=== PATIENT | female | born 1955 | race Caucasian/White ===

== ENCOUNTER 2018-11-13 09:46 | Day surgery (SDC) | payer OTHER ==
[2018-11-11 10:41] VITALS: BMI 28.3
[~2018-11-13 09:46] MED LIST: Dexamethasone 20 MG/5 ML VIAL ONE; Ketorolac Tromethamine 30 MG/ML VIAL ONE; Lidocaine 1% PF 5 ML VIAL ONE; Ondansetron PF 4 MG/2 ML Vial ONE; PROPOFOL 200 MG/20 ML VIAL ONE; ePHEDrine 50 MG/ML VIAL ONE
[2018-11-13] MEDS ORDERED: ceFAZolin Sodium (SDC) 2 GM/100 ML BAG ONE (10:52)
[2018-11-13] MEDS ORDERED: Bupivacaine PF 0.5% 30 ML VIAL ONE (11:26)
[2018-11-13] MEDS ORDERED: Betamet Acet/Betamet Na Ph 30 MG/5 ML VIAL ONE (11:26)
[2018-11-13] MEDS ORDERED: Fentanyl 100 MCG/2 ML VIAL ONE (11:31)
[2018-11-13] MEDS ORDERED: Promethazine HCl 25 MG/ML VIAL ONE (11:36)
[2018-11-13] MEDS ORDERED: Midazolam HCl 2 mg/2 ml Vial ONE (11:46)
[2018-11-13] MEDS ORDERED: Bacitracin Zinc Ointment 30 gm TUBE ONE (12:26)
--- NOTE | 2018-11-13 18:48 | OP ---
DATE OF PROCEDURE: 11/13/2018 PREOPERATIVE DIAGNOSIS: Left ring finger trigger digit POSTOPERATIVE DIAGNOSES: 1. Left ring finger trigger digit tight A1 adina. 2. Left ring finger ganglion flexor tendon sheath almost 4 mm. 3. Left ring finger flexor digitorum superficialis and profundus tenosynovitis. PROCEDURES PERFORMED: 1. Left ring finger trigger digit release. 2. Left ring finger ganglion excision. 3. Left ring finger flexor digitorum radical flexor tenosynovectomy. 4. Left ring finger flexor digitorum superficialis radical flexor tenosynovectomy. SPECIMEN SENT TO LAB: 4 mm ganglion with some sheath tenosynovium from the tenosynovectomy. TOURNIQUET TIME: 12 minutes. ESTIMATED BLOOD LOSS: Less than or equal to 5 mL. FINDINGS: Again, 4 mm ganglion from the flexor tendon sheath as well as a flexor tenosynovitis. INDICATIONS: The patient has failed conservative treatment with complaint of thickening, popping, swelling, and pain at the ring finger A1 adina region, left side. DESCRIPTION OF PROCEDURE: After successful general LMA technique by [employer] Anesthesia, W[employer] SERVICE MANAGER the time-out done appropriately, we gave first 10 mL of 0.5% Marcaine and a field block prior to procedure and then 10 more mL at the end when the wound was closed. We then exsanguinated the limb, finished time-out, and then inflated the tourniquet. We then made a Haley type incision over the A1 adina slightly more radial than ulna, carried through skin and subcutaneous tissue until we identified some synechiae, which were released as well as the ulnar neurovascular and radial neurovascular bundles, which we spared. We then could easily see the patient had a 4 mm ganglion at junction of the flexor tendon sheath and the adina, so when we made the A1 adina release, we included this portion of the ganglion. The tenosynovium was inspected. It was very thick, so radical flexor tenosynovectomy was indicated and accomplished. A specimen was sent to the lab. The tourniquet was deflated. We placed 4 mL of Celestone over the tendon sheath area, closed the wound with interrupted 4-0 nylon in a mattress pattern, finished with last 10 mL of 0.5% Marcaine injection, and the patient left the operating room without evidence of anesthetic or operative complication. Job ID: [id number]
--- NOTE | 2018-11-17 05:47 | PQF ---
[facility] POST DISCHARGE CLINICAL DOCUMENTATION IMPROVEMENT CLARIFICATION FORM l Todays Date: 11/17/18 l Patients Name ADITI JOINER l l Admit Date 11/13/18 l Disch Date 11/13/18 Medical Technologist Chemistry Name Mirian Hogan Email: [email or web address] Cell: [phone] To be completed by Medical Technologist Chemistry: Present Clinical Indicators - Signs / Symptoms Results and Location in Medical Record [ ] Documentation of: [ ] [ ] Documentation of: [ ] [ ] Documentation of: [ ] [ ] Documentation of: [ ] [ ] Risks [ ] [ ] [ ] Treatment [ ] Need to verify correct laterality Left ring finger was documented on the Operative Report and Notes while Right ring finger was from H&P and Pathology Report. [ ] [ ] To be completed by Physician: JAMIE CORDOVA The documentation in this patients record requires clarification to ensure coding compliance and accuracy. Check the appropriate box and include in your discharge summary. [ ] [ ] [ ] [ ] Please check this box if this does not apply to this patient [ ] Unable to determine [ ] Other diagnosis: Review the following information and exercise your independent professional judgment in responding to the clarification. Based upon the clinical findings, risk factors, and treatment, please clarify if you are treating one of the above probable or suspected diagnoses. Physician Signature: Date Time MTDD
--- NOTE | 2018-11-21 10:58 | OP ---
DATE OF PROCEDURE: 11/13/2018 PREOPERATIVE DIAGNOSES: 1. Left ring finger trigger digit. 2. Left ring finger ganglion. 3. Left ring finger flexor tenosynovitis. PROCEDURES PERFORMED: 1. Left ring finger trigger digit release. 2. Left ring finger ganglion excision from the tendon sheath. 3. Left ring finger flexor digitorum profundus and superficialis radical tenosynovectomy with removal of 4 mm ganglion and sheath at the tenosynovitis site. ESTIMATED BLOOD LOSS: Less than or equal to 10 mL. TOURNIQUET TIME: 12 minutes. FINDINGS: Difficult to remain on this so high level for so long. Other findings of 4 mm flexor sheath ganglion, marked erythema and evidence of irritation. DESCRIPTION OF PROCEDURE: After successful general endotracheal, the limb was prepped and draped. The patient had the time-out done appropriately and the site, side, and consent matched and the patient was prepared. We deflated the tourniquet. We had exsanguinated the limb, inflated tourniquet to 250 mmHg pressure. We then first approached the right ring finger trigger digit. Here, we made a Sam type incision along the left ring finger, carried through skin and subcutaneous tissue, and immediately identified the A1 adina, but inside seen bulging tenosynovitis. There was a 4 mm to 5 mm ganglion of tendon sheath and excised along with the A1 adina being released and specimen sent to the lab. There was still bursal tenosynovitis. We lifted up the flexor digitorum profundus and superficialis with the entire A1 adina release, did a radical flexor tenosynovectomy on both. I placed Celestone to wound 5 mL, deflated tourniquet, closed the wound incision with interrupted 4-0 nylon. The patient left the operating room without evidence of anesthetic or operative complication. Job ID: [id number]
== END 2018-11-13 15:00 | disposition home or self-care (01) ==
LOC: SDC 09:46
PROVIDERS: ATTEND Orthopaedic Surgery Hand Surgery
PROC: 0LN80ZZ Release Left Hand Tendon, Open Approach (ICD-10-PCS; principal; 2018-11-13)
PROC: 0LB80ZZ Excision of Left Hand Tendon, Open Approach (ICD-10-PCS; principal; 2018-11-13)
DX: M65.342 Trigger finger, left ring finger (principal); M67.442 Ganglion, left hand; M65.9 Synovitis and tenosynovitis, unspecified; E03.9 Hypothyroidism, unspecified; Z79.899 Other long term (current) drug therapy
CPT/HCPCS: 88304; J0131; J0690; J0702; J1100; J1885; J2001; J2250; J2405; J2550; J2704; J3010; J3490; S0020